=== PATIENT | male | born 1950 | race Caucasian/White ===

== ENCOUNTER 2016-11-03 08:30 | Outpatient (CLI) | payer OTHER ==
--- NOTE | 2016-11-03 10:15 | RAD ---
FOUR VIEWS LUMBOSACRAL SPINE: COMPARISON: None. HISTORY: Low back pain since he was 15 years old. FINDINGS: AP, lateral, flexion, and extension views of the lumbosacral spine were performed. There is grade I anterolisthesis of L5 on S1. The intervertebral disks are narrowed. No other areas of subluxation are seen. Moderate osteophytes and moderate posterior facet arthrosis is seen throughout the lumba r spine. Alignment is unchanged with flexion and extension. IMPRESSION: Moderate degenerative changes of the lumbosacral spine without change in alignment with fending. POS: [facility]
--- NOTE | 2016-11-03 10:45 | MRI ---
EXAM: LUMBAR SPINE MRI WITHOUT CONTRAST: HISTORY: Low back pain since age 15. The pain has worsened in the past few years. COMPARISON: None. TECHNIQUE: Lumbar spine MRI is performed without intravenous Gadolinium administration. Multisequential, multi planar imaging is performed. FINDINGS: There is appropriate T1 marrow signal intensity of the lumbar vertebrae. Lumbar spine vertebral bod y height is maintained. There is no fracture. Intrinsic T1 and T2 hyperintensity involving the ant erior inferior end plate of L2 due to a combination of type I and type II Modic changes. Symmetric signal intensity of the psoas muscles. Appropriate signal intensity of the visualized amisha id organs. Conus medullaris terminates at the superior end plate of L1. There is 5.5 mm of retrolisthesis of L4 upon L5 and 4.2 mm anterolisthesis of L5 upon S1. T12-L1: Adequate disk hydration. No significant central canal stenosis. Neural foramen are patent . L1-L2: Adequate disk hydration. No significant central canal stenosis. Neural foramen are patent. L2-L3: Disk desiccation with mild loss of disk space height. Generalized disk bulge, ligamentum fl avum thickening, and facet hypertrophy result in mild central canal stenosis. Mild bilateral forami nal narrowing. L3-L4: Moderate loss of disk space height. No significant posterior disk abnormality. Mild ligame ntum flavum thickening and facet hypertrophy. No significant central canal stenosis. Mild bilatera l foraminal narrowing. L4-L5: Mild to moderate loss of disk space height. No significant posterior disk abnormality. No significant central canal stenosis. Moderate right and mild to moderate left foraminal narrowing. L5-S1: Disk desiccation with mild loss of disk space height. Generalized disk bulge. No significa nt central canal stenosis. Moderate to severe bilateral foraminal narrowing. IMPRESSION: Degenerative changes of the lumbar spine as above. POS: [facility]
== END 2016-11-03 08:31 | disposition home or self-care (01) ==
LOC: TBSIIMAG 08:30
PROVIDERS: ATTEND Surgery
DX: M54.5 Low back pain (principal); M47.817 Spondylosis without myelopathy or radiculopathy, lumbosacral region
CPT/HCPCS: 72110; 72148

== ENCOUNTER 2016-11-19 08:57 | Outpatient (CLI) | payer OTHER ==
--- NOTE | 2016-11-19 11:28 | CT ---
CT OF THE LUMBAR SPINE WITHOUT CONTRAST: Date: 11/19/16 INDICATION: History of low back pain for many years without injury. The patient is currently receiving steroid i njections. There is concern for lumbar stenosis. COMPARISON: MRI of the lumbar spine dated 11/03/16. FINDINGS: There are pars defects at L5 with Grade I anterolisthesis. There is advanced disc degenerative disea se of the L5-S1 level with associated vacuum disc phenomenon. There is loss of the disc space height . Constellation of findings induces moderate to severe bilateral neural foraminal narrowing, right g reater than left. At L4-5, there is an asymmetric to the right disc osteophyte complex with moderate facet joint degen erative change inducing mild to moderate bilateral neural foraminal narrowing, right greater than le ft. At L3-4, there is a disc osteophyte complex with facet hypertrophy inducing mild bilateral neural fo raminal narrowing. At L2-3, there is a disc osteophyte complex with facet joint degenerative change and ligamentum flav um hypertrophy likely inducting mild central canal narrowing with at least mild bilateral neural for aminal narrowing. At L1-2, there is no appreciable osseous central canal or neural foraminal narrowing. At T12-L1, there is no appreciable osseous central canal or neural foraminal narrowing. Visualized retroperitoneum demonstrates vascular calcification involving the abdominal aorta. No lym phadenopathy is evident. IMPRESSION: 1. Bilateral pars defects at L5 with Grade I anterolisthesis and advanced disc degenerative disease at L5-S1. There is moderate to severe bilateral neural foraminal narrowing at L5-S1. 2. Mild to moderate bilateral neural foraminal narrowing at L4-5, right greater than left. 3. Mild bilateral neural foraminal narrowing and mild central canal narrowing at L2-3. 4. Mild bilateral neural foraminal narrowing at L3-4. POS: [facility]
== END 2016-11-19 08:58 | disposition home or self-care (01) ==
LOC: TBSIIMAG 08:57
PROVIDERS: ATTEND Surgery
DX: M48.061 Spinal stenosis, lumbar region without neurogenic claudication (principal); M43.16 Spondylolisthesis, lumbar region; M51.36 Other intervertebral disc degeneration, lumbar region
CPT/HCPCS: 72131

== ENCOUNTER 2018-07-04 09:00 | Inpatient (IN) | payer BC ==
[2018-07-10 10:43] VITALS: BMI 34.0
[2018-07-10 12:41] LABS: #Eosinphils 0.2 thou/uL (0.0-0.7); #Lymphocytes 2.2 thou/uL (1.20-3.40); #Monocytes 0.8 thou/uL (0.11-0.59); #Neutrophils 4.9 thou/uL (1.40-6.50); %Basophils 0.3 % (0.0-1.0); %Eosinophils 2.2 % (0.0-10.0); %Lymphocytes 27.6 % (21.0-51.0); Hemoglobin 16.7 g/dL (14.0-18.0); Mean Corpuscular HGB CONC 34.2 g/dL (32.0-36.0); Mean Corpuscular Hemoglobin 31.6 pg (27.0-31.0); Mean Corpuscular Volume 92.2 fL (78.0-98.0); Mean Platelet Volume 9.8 fL (7.4-10.4); Platelet Count 169 thou/uL (130-400); RBC Distribution Width 12.9 % (11.5-14.5); Red Blood Cell (RBC) Count 5.28 mill/uL (4.70-6.10); White Blood Cell (WBC) Count 8.1 thou/uL (4.8-10.8)
[2018-07-10 12:48] LABS: INR-International Normal Ratio 1.3; Prothrombin Time 16.4 SEC (12.0-14.7)
[2018-07-10 12:58] LABS: Bilirubin Negative (Negative); Blood, Urine Negative (Negative); Clarity CLEAR (Clear); Glucose, Urine (Dipstick) Negative (Negative); Leukocyte Negative (Negative); Nitrite Negative (Negative); Protein, Urine (Dipstick) Negative (Neg-Trace); Specific Gravity, Urine 1.022 (1.002-1.036); pH, Urine 7.5 (5.0-9.0)
[2018-07-10 13:00] LABS: Bacteria/HPF None Seen HPF (None Seen); Hyaline Casts/LPF 0-3 HYALINE CAST LPF (0-3 Hyaline); Pathc Cast-AUWi Flag 0.13 (0-2.49); Squamous Epithelial 0-3 HPF (0-3); WBC/HPF 0-3 HPF (0-3)
[2018-07-10 13:05] LABS: Anion Gap 11 mmol/L (10-20); BUN (Urea Nitrogen) 13 mg/dL (8.4-25.7); Calc. Creatinine Clearance 0 mL/min (70-130); Calcium 9.4 mg/dL (7.8-10.44); Carbon Dioxide 30 mmol/L (23-31); Chloride 99 mmol/L (98-107); Estimated GFR-MDRD Greater than 90; Glucose 95 mg/dL (80-115); Potassium 3.4 mmol/L (3.5-5.1); Sodium 137 mmol/L (136-145)
[2018-07-11] MEDS ORDERED: Sodium Chloride 0.9% 100 ML ONE (06:39)
[2018-07-11] MEDS ORDERED: Tranexamic Acid 1,000 MG/10 ML VIAL ONE (06:39)
[2018-07-11] MEDS ORDERED: Vancomycin HCl 1.5 GM in Sodium Chloride 0.9% 250 ML 300 ML IVPB SCH (06:45)
[2018-07-11] MEDS ORDERED: Midazolam HCl 2 mg/2 ml Vial ONE (07:49)
[2018-07-11] MEDS ORDERED: Fentanyl 100 MCG/2 ML VIAL ONE ×3 (07:49→12:38)
[2018-07-11] MEDS ORDERED: Naloxone HCl 0.4 mg/ml Vial IVP PRN (08:45)
[2018-07-11] MEDS ORDERED: Promethazine HCl 25 MG SUPP PR PRN (08:45)
[2018-07-11] MEDS ORDERED: diphenhydrAMINE 50 MG/ML VIAL IM PRN (08:45)
[2018-07-11] MEDS ORDERED: Bupivacaine 0.25% 10 ML VIAL EPIDURAL PRN (08:45)
[2018-07-11] MEDS ORDERED: diphenhydrAMINE 50 MG/ML VIAL IVP PRN (08:45)
[2018-07-11] MEDS ORDERED: Hydrocerin (Eucerin) Cream 120 gm Jar TOP PRN (08:45)
[2018-07-11] MEDS ORDERED: diphenhydrAMINE 25 MG CAP PO PRN ×2 (08:45→09:00)
[2018-07-11] MEDS ORDERED: Zolpidem Tartrate 5 MG TAB PO PRN ×2 (08:45→09:00)
[2018-07-11] MEDS ORDERED: Ondansetron PF 4 MG/2 ML Vial IVP PRN ×2 (08:45→09:00)
[2018-07-11] MEDS ORDERED: Promethazine HCl 25 MG/ML VIAL IM PRN ×3 (08:45→11:16)
[2018-07-11] MEDS ORDERED: HYDROcodone/Acetaminophen 5/325 mg Tablet PO PRN ×2 (08:45)
[2018-07-11] MEDS ORDERED: Naloxone HCl 0.4 mg/ml Vial IV PRN (08:45)
[2018-07-11] MEDS ORDERED: fentaNYL Citrate/PF 500 MCG, Bupivacaine 10 ML in Sodium Chloride 0.9% 80 ML EPIDURAL SCH (08:45)
[2018-07-11] MEDS ORDERED: traMADol HCl 50 MG TAB PO PRN ×2 (08:45)
[2018-07-11] MEDS ORDERED: Acetaminophen 325 MG TAB PO PRN (09:00)
[2018-07-11] MEDS ORDERED: HYDROcodone/Acetaminophen 10/325 mg Tablet PO PRN ×2 (09:00)
[2018-07-11] MEDS ORDERED: Bupivacaine/Epinephrine 0.25% 30 ML VIAL ONE (09:24)
[2018-07-11] MEDS ORDERED: Loratadine/Pseudoephedrine 10/240 mg Tablet PO PRN (11:01)
[2018-07-11] MEDS ORDERED: Promethazine HCl 25 MG/ML VIAL SLOW IVP PRN (11:16)
[2018-07-11] MEDS ORDERED: Ondansetron HCl/PF 4 MG/2 ML Vial IVP PRN (11:16)
[2018-07-11] MEDS ORDERED: Ketorolac Tromethamine 30 MG/ML VIAL IVP SCH ×2 (12:00→13:30)
--- NOTE | 2018-07-11 12:10 | RAD ---
XR Hip Lt 2-3 View History: [Postop total left hip] Comparison: None. Findings: Satisfactory appearance left hip arthroplasty. Expected postoperative gas and edema. Impression: Satisfactory postoperative appearance.
[2018-07-11] MEDS ORDERED: fentaNYL Citrate/PF 2,000 MCG in Sodium Chloride 0.9% 60 ML IV PRN (13:20)
[2018-07-11] MEDS ORDERED: Ketorolac Tromethamine 30 MG/ML VIAL ONE (13:23)
[2018-07-11] MEDS ORDERED: Acetaminophen 1,000 MG in Premix Bag 1 BAG IVPB SCH (13:30)
[2018-07-11] MEDS: Aspirin 81 mg Enteric Coated Tablet PO SCH (17:26)
[2018-07-11] MEDS: Sodium Chloride 0.9% 1,000 ML IV SCH ×2 (17:26→18:49)
[2018-07-11] MEDS: CEFAZOLIN 2 GM in Premix Bag 1 BAG IVPB SCH (17:39)
[2018-07-11] MEDS: Warfarin Sodium 10 MG TAB PO SCH (17:48)
[2018-07-11] MEDS: Acetaminophen 500 MG TAB PO SCH (18:41)
[2018-07-11] MEDS: Ketorolac Tromethamine 30 MG/ML VIAL IVP SCH (18:43)
--- NOTE | 2018-07-11 18:44 | CON ---
DATE OF CONSULTATION: 07/11/2018 REASON FOR CONSULTATION: Medical management. HISTORY OF PRESENT ILLNESS: Mr. De La Cruz is a pleasant 67-year-old male with past medical history significant for hypertension, hyperlipidemia, and multiple DVTs, on chronic anticoagulation with warfarin, who presented to the hospital today for elective left hip arthroplasty with Dr. Stacy. He underwent successful procedure today, and is seen postoperatively in his room. The patient is resting comfortably and has no complaints at this time. His pain is well controlled. He denies any chest pain or shortness of breath. He denies any nausea, and is currently ordering dinner from his menu. His past medical history discussed at length, and the patient has had recent pulmonology workup with Dr. Gross at [facility], and was cleared for surgery. The patient does want his home medications started as soon as possible. The patient has no other concerns or complaints at this time. REVIEW OF SYSTEMS: A 12-point review of systems performed and is negative except that stated above. PAST MEDICAL HISTORY: Multiple DVTs, the patient states at least 3 or 4 in his past; hypertension; hyperlipidemia; postnasal drip and chronic cough, improved with Claritin-D. FAMILY HISTORY: Noncontributory. ALLERGIES: AMLODIPINE. HOME MEDICATIONS: 1. Albuterol sulfate inhaler one puff p.r.n. b.i.d. 2. Hydrochlorothiazide 25 mg one tablet daily. 3. Celecoxib 200 mg tablet, one tablet p.o. at bedtime. 4. Claritin-D 24 hour one tablet p.o. at bedtime. 5. Pravastatin 40 mg tablet, one tablet p.o. at bedtime. 6. Warfarin 10 mg tablet, one tablet p.o. daily. 7. Lovenox 30 mg subcu b.i.d. 8. Hydrocodone 7.5/325 one tablet p.o. q.6 hours p.r.n. LABORATORY DATA: White blood cell count 8.1, hemoglobin 16.7, hematocrit 48.7, platelet is 169. PT 16.4, INR 1.3. Sodium 137, potassium 3.4, BUN 13, creatinine 0.84. Urinalysis was negative. PHYSICAL EXAMINATION: VITAL SIGNS: Blood pressure 146/72, pulse 70s, O2 saturation 95% on room air. GENERAL: This is a moderately obese male, resting comfortably in bed , in no acute distress. HEENT: Head is atraumatic and normocephalic. Mucous membranes are moist. NECK: Supple. No lymphadenopathy. Trachea is midline. CV: S1 and S2, regular rate and rhythm. No appreciable murmurs, rubs, or gallops. ABDOMEN: Soft, positive bowel sounds, obese, nontender. EXTREMITIES: No edema bilaterally. Both lower extremities are warm and well perfused. NEUROLOGIC: Cranial nerves 2 through 12 are grossly intact. The patient is nonfocal. ASSESSMENT: 1. Status post left hip arthroplasty with Dr. Stacy. 2. Hypertension. 3. Hyperlipidemia. 4. History of multiple deep venous thrombosis, on chronic anticoagulation with warfarin. 5. Postnasal drip with chronic cough, improved with Claritin-D and albuterol inhaler, recent pulmonology workup by Dr. Gross was negative. PLAN: I will continue the patient's home medication regimen including his hydrochlorothiazide and pravastatin. We will continue to bridge with Lovenox until the patient's INR is therapeutic. We will continue his Claritin-D. The patient has requested albuterol nebulizer as opposed to his inhaler while he is in the hospital p.r.n. cough and wheezing. We will continue to check his INR. We will continue prophylactic antibiotic per Dr. Stacy. The care of this patient has been discussed with Dr. Zaragoza, who agrees with the plan as outlined above. We will continue pain control and physical therapy. Thank you for the consultation. Job ID: [id number] [facility]
[2018-07-11] MEDS: PROVENTIL INHALER 6.7 G (200 INHALATIONS) INH SCH (18:52)
[2018-07-11] MEDS ORDERED: Albuterol Sulfate 2.5 mg/3 ml Neb NEB PRN (19:00)
[2018-07-11] MEDS: Atorvastatin Calcium 10 MG TAB PO SCH (20:34)
[2018-07-11] MEDS: Loratadine/Pseudoephedrine 10/240 mg Tablet PO SCH (20:34)
[2018-07-11] MEDS ORDERED: CELECOXIB PO SCH (21:00)
[2018-07-12] MEDS: Ketorolac Tromethamine 30 MG/ML VIAL IVP SCH ×4 (01:17→18:11)
[2018-07-12] MEDS: CEFAZOLIN 2 GM in Premix Bag 1 BAG IVPB SCH (01:18)
[2018-07-12] MEDS: Acetaminophen 500 MG TAB PO SCH ×4 (01:18→18:10)
[2018-07-12] MEDS: Sodium Chloride 0.9% 1,000 ML IV SCH ×2 (01:21→12:45)
[2018-07-12 04:46] LABS: Hemoglobin 13.2 g/dL (14.0-18.0); Mean Corpuscular HGB CONC 33.5 g/dL (32.0-36.0); Mean Corpuscular Hemoglobin 31.6 pg (27.0-31.0); Mean Corpuscular Volume 94.2 fL (78.0-98.0); Mean Platelet Volume 9.5 fL (7.4-10.4); Platelet Count 127 thou/uL (130-400); RBC Distribution Width 13.1 % (11.5-14.5); White Blood Cell (WBC) Count 9.1 thou/uL (4.8-10.8)
[2018-07-12 04:46] LABS: INR-International Normal Ratio 1.2; PTT 27.5 SEC (22.9-36.1); Prothrombin Time 15.5 SEC (12.0-14.7)
[2018-07-12] MEDS: PROVENTIL INHALER 6.7 G (200 INHALATIONS) INH SCH ×2 (07:20→19:08)
[2018-07-12] MEDS ORDERED: Warfarin Sodium 10 MG TAB PO SCH (09:00)
[2018-07-12] MEDS ORDERED: Enoxaparin Sodium 40 MG/0.4 ML SYRINGE SC SCH (09:00)
[2018-07-12] MEDS: Multivitamin W/ Minerals 1 TAB PO SCH (09:27)
[2018-07-12] MEDS: Ferrous Gluconate 324 MG TAB PO SCH ×2 (09:28→20:14)
[2018-07-12] MEDS: Senokot S 8.6-50 MG TAB PO SCH ×2 (09:28→20:14)
[2018-07-12] MEDS: Hydrochlorothiazide 25 MG TAB PO SCH (09:29)
[2018-07-12] MEDS: Warfarin Sodium 10 MG TAB PO SCH (17:11)
[2018-07-12] MEDS ORDERED: Enoxaparin Sodium 30 MG/0.3 ML SYRINGE SC SCH (19:00)
[2018-07-12] MEDS: Atorvastatin Calcium 10 MG TAB PO SCH (20:14)
[2018-07-12] MEDS: Loratadine/Pseudoephedrine 10/240 mg Tablet PO SCH (20:20)
[2018-07-13] MEDS: Ketorolac Tromethamine 30 MG/ML VIAL IVP SCH ×3 (01:03→13:53)
[2018-07-13] MEDS: Acetaminophen 500 MG TAB PO SCH ×2 (01:05→06:02)
[2018-07-13] MEDS: Sodium Chloride 0.9% 1,000 ML IV SCH ×2 (01:05→10:13)
[2018-07-13 06:20] LABS: Hemoglobin 13.6 g/dL (14.0-18.0); Mean Corpuscular HGB CONC 33.4 g/dL (32.0-36.0); Mean Corpuscular Hemoglobin 31.3 pg (27.0-31.0); Mean Corpuscular Volume 93.8 fL (78.0-98.0); Mean Platelet Volume 9.8 fL (7.4-10.4); Platelet Count 112 thou/uL (130-400); RBC Distribution Width 13.2 % (11.5-14.5); Red Blood Cell (RBC) Count 4.34 mill/uL (4.70-6.10); White Blood Cell (WBC) Count 9.8 thou/uL (4.8-10.8)
[2018-07-13 06:23] LABS: INR-International Normal Ratio 1.5; PTT 36.4 SEC (22.9-36.1); Prothrombin Time 17.9 SEC (12.0-14.7)
[2018-07-13] MEDS: PROVENTIL INHALER 6.7 G (200 INHALATIONS) INH SCH (07:02)
[2018-07-13] MEDS: Multivitamin W/ Minerals 1 TAB PO SCH (08:51)
[2018-07-13] MEDS: Hydrochlorothiazide 25 MG TAB PO SCH (08:51)
[2018-07-13] MEDS: Senokot S 8.6-50 MG TAB PO SCH (08:51)
[2018-07-13] MEDS: Ferrous Gluconate 324 MG TAB PO SCH (08:51)
--- NOTE | 2018-07-13 09:29 | PDOC.PN ---
- Subjective Encounter Start Date: 07/12/18 Encounter Start Time: 14:00 Subjective: pt up in chair no complains - Objective Vital Signs & Weight: Vital Signs (12 hours) Temp Pulse Resp BP BP Pulse Ox 07/13/18 07:30 98.3 F 103 H 16 149/76 H 95 07/13/18 05:06 98.7 F 99 20 158/88 H 97 07/13/18 00:43 98.4 F 96 20 151/79 H 97 Weight Admit Weight 230 lb Weight 230 lb I&O: 07/12/18 07/13/18 07/14/18 06:59 06:59 06:59 Intake Total 1050 3810 Output Total 300 1525 Balance 750 2285 Result Diagrams: 07/13/18 05:44 07/10/18 11:55 Phys Exam - Physical Examination Neck: no nodes, no JVD, supple, full ROM Respiratory: no wheezing, no rales, no rhonchi, wheezing present, clear to auscultation bilateral Cardiovascular: RRR, no significant murmur, no rub, gallop, irregular Gastrointestinal: soft, non-tender, no distention, positive bowel sounds Dx/Plan (1) H/O arthroplasty Code(s): Z98.890 - OTHER SPECIFIED POSTPROCEDURAL STATES Status: Acute (2) DVT (deep venous thrombosis) Code(s): I82.409 - ACUTE EMBOLISM AND THOMBOS UNSP DEEP VN UNSP LOWER EXTREMITY Status: Acute (3) HTN (hypertension) Code(s): I10 - ESSENTIAL (PRIMARY) HYPERTENSION Status: Acute - Plan pt on lovonox bid and coumadin. if INR around 1.5 will consider -: stopping lovonox and continue coumadin -: vitals stable * . Review of Systems - Review of Systems Cardiovascular: negative: chest pain, palpitations, orthopnea, paroxysmal nocturnal dyspnea, edema, light headedness, other Gastrointestinal: negative: Nausea, Vomiting, Abdominal Pain, Diarrhea, Constipation, Melena, Hematochezia, Other - Medications/Allergies Allergies/Adverse Reactions: Allergies Allergy/AdvReac Type Severity Reaction Status Date / Time amlodipine Allergy Rash Verified 07/10/18 10:44 Medications: Current Medications Acetaminophen (Tylenol) 1,000 mg PO 0100,0700,1300,1900 MALIKA Stop: 07/13/18 19:01 Last Admin: 07/13/18 06:02 Dose: 1,000 mg Albuterol Sulfate (Proventil Hfa) 1 puff INH BID-RT [facility] Last Admin: 07/13/18 07:02 Dose: 1 puff Albuterol Sulfate (Ventolin) 2.5 mg NEB [id number] PRN PRN Reason: Wheezing Last Admin: 07/12/18 18:56 Dose: 2.5 mg Aspirin (Ecotrin) 81 mg PO BID [facility] Last Admin: 07/11/18 17:26 Dose: Not Given Atorvastatin Calcium (Lipitor) 10 mg PO HS [facility] Last Admin: 07/12/18 20:14 Dose: 10 mg Celecoxib (Celebrex) 200 mg PO HS [facility] Diphenhydramine HCl (Benadryl) 25 mg PO Q3H PRN PRN Reason: Itching Diphenhydramine HCl (Benadryl) 25 mg IM Q3H PRN PRN Reason: Itching Diphenhydramine HCl (Benadryl) 25 mg IVP Q3H PRN PRN Reason: Itching Emollient Cream (Hydrocerin Cream) 0 gm TOP PRN PRN PRN Reason: Itching Ferrous Gluconate (Fergon) 324 mg PO BID [facility] Last Admin: 07/13/18 08:51 Dose: 324 mg Hydrochlorothiazide (Hydrochlorothiazide) 25 mg PO DAILY [facility] Last Admin: 07/13/18 08:51 Dose: 25 mg Sodium Chloride (Normal Saline 0.9%) 1,000 mls @ 100 mls/hr IV .Q10H [facility] Last Admin: 07/13/18 01:05 Dose: Not Given Fentanyl Citrate 2,000 mcg/ (Sodium Chloride) 100 mls @ 0 mls/hr IV INF PRN PRN Reason: Pain Last Admin: 07/12/18 15:19 Dose: 100 mls Iron/Minerals/Multivitamins (Theragran M) 1 tab PO DAILY [facility] Last Admin: 07/13/18 08:51 Dose: 1 tab Ketorolac Tromethamine (Toradol) 15 mg IVP 0100,0700,1300,1900 [facility] Stop: 07/13/18 19:01 Last Admin: 07/13/18 06:01 Dose: 15 mg Loratadine/Pseudoephedrine Sulfate (Claritin-D 24 Hour) 1 tab PO HS [facility] Last Admin: 07/12/18 20:20 Dose: Not Given Loratadine/Pseudoephedrine Sulfate (Claritin-D 24 Hour) 1 tab PO DAILY PRN PRN Reason: Allergies Last Admin: 07/11/18 17:49 Dose: 1 tab Miscellaneous Information (Communication Order-Pharmacy) 1 each FS ASDIR MALIKA Naloxone HCl (Narcan) 0.2 mg IV Q5MIN PRN PRN Reason: RR <=8 OR OBTUNDED/UNAROUSABLE Naloxone HCl (Narcan) 0.1 mg IVP Q15MIN PRN PRN Reason: URINARY RETENTION Ondansetron HCl (Zofran) 4 mg IVP Q6H PRN PRN Reason: Nausea/Vomiting Promethazine HCl (Phenergan) 12.5 mg IM Q4H PRN PRN Reason: Nausea Promethazine HCl (Phenergan Suppository) 25 mg NJ Q4H PRN PRN Reason: Nausea/Vomiting Senna/Docusate Sodium (Senokot S) 2 tab PO BID [facility] Last Admin: 07/13/18 08:51 Dose: 2 tab Sodium Chloride (Flush - Normal Saline) 10 ml IVF PRN PRN PRN Reason: Saline Flush Warfarin Sodium (Coumadin) 10 mg PO 1700 [facility] Last Admin: 07/12/18 17:11 Dose: 10 mg Zolpidem Tartrate (Ambien) 5 mg PO HSPRN PRN PRN Reason: Insomnia
[2018-07-13] MEDS: Aspirin 81 mg Enteric Coated Tablet PO SCH (09:59)
[2018-07-13] MEDS ORDERED: HYDROcodone/Acetaminophen 10/325 mg Tablet PO PRN ×2 (11:16→11:17)
[2018-07-13] MEDS ORDERED: traMADol HCl 50 MG TAB PO PRN ×2 (11:17)
[2018-07-13 12:11] VITALS: BP 155/79; TEMP 98.7
[2018-07-13] MEDS ORDERED: Enoxaparin Sodium 30 MG/0.3 ML SYRINGE SC SCH (12:15)
[2018-07-14] MEDS ORDERED: CeleCOXIB 100 MG CAP PO SCH (21:00)
== END 2018-07-13 14:15 | disposition home or self-care (01) | DRG 470 ==
LOC: EDSTATUS 09:00 → SURG A 07-11 06:25 → SURG B 07-11 15:45
PROVIDERS: ADMIT Orthopaedic Surgery; ATTEND Orthopaedic Surgery
PROC: 0SRB04Z Replacement of Left Hip Joint with Ceramic on Polyethylene Synthetic Substitute, Open Approach (ICD-10-PCS; principal; 2018-07-11)
DX: M16.12 Unilateral primary osteoarthritis, left hip (principal); I10 Essential (primary) hypertension; E78.5 Hyperlipidemia, unspecified; Z86.718 Personal history of other venous thrombosis and embolism; Z79.01 Long term (current) use of anticoagulants; Z79.899 Other long term (current) drug therapy
CPT/HCPCS: 36415; 80048; 81001; 85025; 85027; 85610; 85730; 86850; 86900; 86901; 93005; 93010; 94640; J0131; J0690; J1642; J1650; J1885; J2250; J3010; J3370; J3490; J7050; J7611

== ENCOUNTER 2018-07-10 10:29 | Outpatient (CLI) | payer BC ==
--- NOTE | 2018-07-10 17:37 | EKG ---
Test Reason : Blood Pressure : / mmHG Vent. Rate : 099 BPM Atrial Rate : 099 BPM P-R Int : 150 ms QRS Dur : 090 ms QT Int : 390 ms P-R-T Axes : 029 002 027 degrees QTc Int : 500 ms Sinus rhythm with Possible Premature atrial complexes with Abberant conduction Prolonged QT Abnormal ECG When compared with ECG of 17-JUN-2005 15:16, Abberant conduction is now Present Vent. rate has increased BY 38 BPM QT has lengthened Confirmed by ZENAIDA WAHL, SBraden ([id number]) on 07/10/2018 5:36:53 PM Referred By: RUFINO Confirmed By:DR. Thad ESTEVEZ MD
== END 2018-07-10 10:30 | disposition home or self-care (01) ==
LOC: LABBT 10:29
PROVIDERS: ATTEND Orthopaedic Surgery
DX: Z01.810 Encounter for preprocedural cardiovascular examination (principal); M16.12 Unilateral primary osteoarthritis, left hip
CPT/HCPCS: 93005; 93010